=== PATIENT | male | born 1950 | race Two or more races ===

== ENCOUNTER 2017-05-16 18:23 | Emergency (ER) | payer BC ==
[~2017-05-16] VITALS: Ht 165.1 cm; Wt 81.6 kg
[2017-05-16] MEDS ORDERED: BECL8.7A6 IH (18:48)
--- NOTE | 2017-05-16 19:01 | NUR ---
Dr. Caceres at bedside for MSE.
--- NOTE | 2017-05-16 19:04 | NUR ---
Report taken from day shift RN. Assuming care at this time.
[2017-05-16] MEDS ORDERED: BENZONATATE 100 MG CAPSULE PO ONE (19:15)
[2017-05-16] MEDS ORDERED: ALBUTEROL SULFATE 2.5 MG/3 ML NEBU NEB ONE (19:15)
[2017-05-16] MEDS ORDERED: HYDROCODONE BIT/HOMATROPINE 5 ML UDC PO ONE (19:15)
[2017-05-16] MEDS ORDERED: predniSONE 20 MG TABLET PO ONE (19:15)
--- NOTE | 2017-05-16 19:15 | NUR ---
Xray at pt bedside
[2017-05-16] MEDS ORDERED: BENZONATATE 100 MG CAPSULE ONE (19:34)
[2017-05-16] MEDS ORDERED: predniSONE 20 MG TABLET ONE (19:35)
[2017-05-16] MEDS ORDERED: HYDROCODONE BIT/HOMATROPINE 5 ML UDC ONE (19:35)
--- NOTE | 2017-05-16 19:40 | NUR ---
RT at bedside for breathing treatment.
[2017-05-16] MEDS ORDERED: ALBUTEROL SULFATE 2.5 MG/3 ML NEBU ONE (19:57)
--- NOTE | 2017-05-16 21:00 | NUR ---
Patient discharged to home in stable conditon. Written and verbal after care instructions given. Patient verbalizes understanding of instructions. No distress noted. Ambulated w/ steady gait.
[2017-05-16 21:32] VITALS: BP 142/94
== END 2017-05-16 21:15 | disposition home or self-care (01) ==
LOC: ER 18:25
DX: J20.8 Acute bronchitis due to other specified organisms (principal); B96.89 Other specified bacterial agents as the cause of diseases classified elsewhere; J45.909 Unspecified asthma, uncomplicated; J18.9 Pneumonia, unspecified organism
CPT/HCPCS: 71045; 93005; A4663; J7512